=== PATIENT | female | born 1975 | race African-American/Black ===

== ENCOUNTER 2020-06-19 08:45 | Inpatient (IN) ==
[2020-06-19 09:36] LABS: Basophils % 0.5 % (0.0-0.8); Eosinophils # 0.1 10*3/uL (0.0-0.87); Eosinophils % 1.7 % (0.00-10.9); Hematocrit 35.8 VOL% (35.7-47.0); Immature Granulocytes % 0.3 %; Immature Granulocytes Absolute 0.02 #; Lymphocytes # 2.7 10*3/uL (1.4-4.0); Lymphocytes % 42.4 % (21.3-54.2); Mean Corpuscular HGB Conc 30.7 GM/DL (32-36); Mean Corpuscular Volume 89.7 FL (87-102); Mean Platelet Volume 10.1 FL (9.6-12.0); Monocytes % 7.4 % (1.7-12.7); Neutrophils % 47.7 % (38.7-73.9); Platelet Count 367 T/CUMM (130-400); Red Blood Count 3.99 MC/CUMM (3.8-5.5); Red Cell Distribution Width 15.6 % (9.3-17.3); White Blood Count 6.3 T/CUMM (4-12)
[2020-06-19 09:45] LABS: Barbiturates Screen,Urine Negative (Negative); Benzodiazepines Screen,Urine Negative (Negative); Cannabinoid Screen,Urine Negative (Negative); Opiate Screen,Urine Negative (Negative); Phencyclidine Screen,Urine Negative (Negative)
[2020-06-19 09:48] LABS: Apearance,Urine CLEAR (Clear); Bilirubin,Urine Negative (Negative); Blood, Urine Moderate mg/dL (Negative); Glucose,Urine (UA) Negative (Negative); Hyaline Casts,Urine 3 /LPF (0-3); Ketones,Urine Negative (Negative); Mucus,Urine Moderate /LPF (Occasional); Nitrite,Urine Negative (Negative); PT Patient Result 10.7 SECS (9.8-11.9); Partial Thromboplastin Time 26.1 SECS (23.9-33.8); Protein,Urine Negative; RBC,Urine 3 /HPF (0-4); Squamous Epithelial Cell,Urine Occasional /HPF (0-10); Urine Color Yellow (Yellow); Urine Specific Gravity 1.019 (1.001-1.035); WBC,Urine <1 /HPF (0-6)
[2020-06-19] MEDS ORDERED: ACETAMINOPHEN 500 MG TABLET PO STA (09:49)
[2020-06-19 09:52] LABS: Albumin 3.5 G/DL (3.4-5.0); Bilirubin,Total 0.7 MG/DL (0.2-1.0); Calcium 8.6 MG/DL (8.5-10.1); Osmolality,Calculated 278.4 MOS/KG (273-304); Total Protein 7.5 G/DL (6.4-8.3)
[2020-06-19] MEDS ORDERED: hydrALAZINE 20 MG/1 ML VIAL ONE (10:18)
[2020-06-19] MEDS ORDERED: hydrALAZINE 20 MG/1 ML VIAL IV STA (10:24)
[2020-06-19] MEDS ORDERED: ONDANSETRON 4 MG/2 ML VIAL IV PRN (10:34)
[2020-06-19] MEDS ORDERED: ACETAMINOPHEN 325 MG TABLET PO PRN (10:34)
[2020-06-19] MEDS ORDERED: DEXTROSE 50% 25 GM/50 ML VIAL IV PRN (10:34)
[2020-06-19] MEDS ORDERED: GLUCAGON 1 MG VIAL IM PRN (10:34)
[2020-06-19] MEDS ORDERED: LORazepam 2 MG/1 ML VIAL IV STA (10:58)
[2020-06-19] MEDS: cloNIDine 0.1 MG TABLET PO SCH ×2 (15:04→20:33)
[2020-06-19] MEDS ORDERED: LORazepam 2 MG/1 ML VIAL IV ONE (15:27)
[2020-06-19] MEDS: ISOSORBIDE MONONITRATE 60 MG TABLET PO SCH (20:32)
[2020-06-19] MEDS: POTASSIUM CHLORIDE 20 MEQ TABLET PO SCH (20:33)
[2020-06-19] MEDS: carvediloL 12.5 MG TABLET PO SCH (20:33)
[2020-06-20 04:05] LABS: Basophils % 0.5 % (0.0-0.8); Eosinophils # 0.1 10*3/uL (0.0-0.87); Eosinophils % 2.6 % (0.00-10.9); Hemoglobin 10.5 GM/DL (12.0-16.0); Immature Granulocytes % 0.2 %; Immature Granulocytes Absolute 0.01 #; Lymphocytes # 2.6 10*3/uL (1.4-4.0); Lymphocytes % 47.4 % (21.3-54.2); Mean Corpuscular HGB Conc 30.9 GM/DL (32-36); Mean Corpuscular Volume 88.1 FL (87-102); Mean Platelet Volume 10.1 FL (9.6-12.0); Monocytes % 8.8 % (1.7-12.7); Neutrophils % 40.5 % (38.7-73.9); Platelet Count 333 T/CUMM (130-400); Red Blood Count 3.86 MC/CUMM (3.8-5.5); Red Cell Distribution Width 15.9 % (9.3-17.3); White Blood Count 5.5 T/CUMM (4-12)
[2020-06-20 04:26] LABS: Albumin 3.2 G/DL (3.4-5.0); Bilirubin,Total 0.8 MG/DL (0.2-1.0); Calcium 8.8 MG/DL (8.5-10.1); Osmolality,Calculated 278.5 MOS/KG (273-304); Risk Ratio 3.33; Thyroid Stimulating Hormone 1.22 uIU/ml (0.358-3.74); Total Protein 7.1 G/DL (6.4-8.3); VLDL CHOLESTEROL 13.4 MG/DL
[2020-06-20] MEDS: POTASSIUM CHLORIDE 20 MEQ TABLET PO SCH (08:01)
[2020-06-20] MEDS: ISOSORBIDE MONONITRATE 60 MG TABLET PO SCH (08:02)
[2020-06-20] MEDS: cloNIDine 0.1 MG TABLET PO SCH ×2 (08:02→14:50)
[2020-06-20] MEDS: carvediloL 12.5 MG TABLET PO SCH (08:02)
[2020-06-20] MEDS ORDERED: ASPIRIN CHEW 81 MG TABLET PO SCH (09:00)
[2020-06-20] MEDS ORDERED: PANTOPRAZOLE 40 MG TABLET PO SCH (09:00)
[2020-06-20] MEDS ORDERED: LORazepam 2 MG/1 ML VIAL IV ONE (10:00)
[2020-06-20 14:42] VITALS: BP 169/71
[2020-06-21] MEDS ORDERED: ISOSORBIDE MONONITRATE 60 MG TABLET PO SCH (09:00)
[2020-06-23 14:55] LABS: Urine Volume 400 mL
[2020-06-23 17:01] LABS: Urine Volume 400 mL
== END 2020-06-20 16:00 | disposition home or self-care (01) | DRG 47 ==
LOC: N.ED 08:45 → SUATTDRO 10:33 → N.EDINP 10:33 → N.TELES 14:26
PROVIDERS: ADMIT Internal Medicine; ATTEND Internal Medicine Geriatric Medicine